=== PATIENT | female | born 1940 | race Caucasian/White ===

== ENCOUNTER 2016-06-22 10:11 | Outpatient (CLI) | payer MEDICARE, OTHER | END 2016-06-22 10:12 | disposition home or self-care (01) | DX: Z12.31 Encounter for screening mammogram for malignant neoplasm of breast (principal); Z98.82 Breast implant status ==

== ENCOUNTER 2019-01-02 10:17 | Outpatient (CLI) | payer MEDICARE, OTHER | END 2019-01-02 10:18 | disposition home or self-care (01) | LOC: DI 10:17 | PROVIDERS: ATTEND Internal Medicine Cardiovascular Disease | DX: R93.1 Abnormal findings on diagnostic imaging of heart and coronary circulation (principal); I08.0 Rheumatic disorders of both mitral and aortic valves | CPT/HCPCS: 93306 ==

== ENCOUNTER 2019-05-29 15:45 | Outpatient (CLI) | payer MEDICARE, OTHER ==
--- NOTE | 2019-05-30 09:02 | DEXA Report ---
Reason: POSTMENOPAUSAL Procedure Date: 05/29/2019 Accession Number: [id number] / [id number] Procedure: DEX - Dexa Spine and/or Hip CPT Code: Final Report FULL RESULT: EXAM: Dexa Spine and/or Hip DATE: 05/29/2019 4:34 PM CLINICAL HISTORY: POSTMENOPAUSAL TECHNIQUE: Dual energy x-ray absorptiometry (DXA) was performed on a [employer] System. Regions measured are the AP Spine, femoral neck, and if needed forearm. COMPARISON: None. In accordance with the International Society for Clinical Densitometry (ISCD) guidelines, data from previous exams may be reanalyzed using current recommendations and techniques. This is done to allow a more accurate basis for comparison with the current study. FINDINGS: The data for the lumbar spine is as follows: BMD (g/cm/cm) T-SCORE Z-SCORE REGION L1 1.266 1.1 2.8 L2 1.324 1.0 2.7 L3 1.385 1.5 3.2 L4 1.376 1.5 3.1 TOTAL 1.341 1.3 3.0 NOTE: All evaluable vertebrae are used for classification The data for the hip is as follows: BMD (g/cm/cm) T-SCORE Z-SCORE REGION Neck 0.779 -1.9 0.2 TOTAL 0.933 -0.6 1.3 NOTE: The femoral neck or total proximal femur, whichever is lowest, is used for classification. IMPRESSION: THE WHO CLASSIFICATION BASED ON THE INTERNATIONAL REFERENCE STANDARD IS OSTEOPENIA. THE FRACTURE RISK IS INCREASED. RECOMMENDATION: Patients with diagnosis of osteoporosis or osteopenia should have regular bone mineral density assessment. For those eligible for Medicare, routine testing is allowed once every 2 years. Testing frequency can be increased for patients who have rapidly progressing disease or for those who are receiving medical therapy to restore bone mass. COMMENT: World Health Organization (WHO) definitions for osteoporosis and osteopenia: NORMAL BMD: T-score at -1.0 or higher, fracture risk is low OSTEOPENIA BMD: T-score between -1.0 and -2.5, fracture risk is increased. OSTEOPOROSIS BMD: T-score at -2.5 or lower, fracture risk is high. National Osteoporosis Foundation recommends: 1. Obtain adequate dietary calcium (at least 1200 mg per day) and vitamin D (400-800 international units per day). 2. Participate, as appropriate, in regular weightbearing and muscle-strengthening exercise. 3. Avoid tobacco use and reduce alcohol and caffeine intake. 4. For more detailed information see the website at www.NOF.org.
== END 2019-05-29 15:46 | disposition home or self-care (01) ==
LOC: DI 15:45
PROVIDERS: ATTEND Registered Nurse
DX: M85.88 Other specified disorders of bone density and structure, other site (principal)
CPT/HCPCS: 77080

== ENCOUNTER 2019-05-29 15:46 | Outpatient (CLI) | payer MEDICARE, OTHER ==
--- NOTE | 2019-05-30 08:33 | Mammography Report ---
Reason: ROUTINE MAMMO Procedure Date: 05/29/2019 Accession Number: [id number] / [id number] Procedure: SIRIA - Screening Mammo Dig w/Implants CPT Code: Final Report FULL RESULT: EXAM: Screening Mammo Dig w/Implants DATE: 05/29/2019 4:31 PM CLINICAL HISTORY: Screening encounter. TECHNIQUE: (B) - Bilateral CC and MLO views were obtained. Views are obtained in standard fashion and implant displaced technique. COMPARISON: 06/22/2016 through 09/21/2009. PARENCHYMAL PATTERN: (F) - The breast(s) demonstrate(s) diffuse fatty replacement. FINDINGS: Bilateral intact-appearing retromammary implants are essentially unchanged There are no suspicious masses, calcifications, or areas of distortion. IMPRESSION: Benign findings. BI-RADS category 2. RECOMMENDATION: (ANNUAL) - Recommend routine annual screening mammography. BI-RADS CATEGORY: (2) - Benign Findings. STANDARD QUALIFYING STATEMENTS: 1. This examination was not reviewed with the aid of Computer-Aided Detection (CAD). 2. A negative or benign imaging report should not preclude biopsy if clinically suspicious findings are present. 3. Dense breasts may obscure an underlying neoplasm. 4. This examination was reviewed with the aid of 3D breast imaging (tomosynthesis).
== END 2019-05-29 15:47 | disposition home or self-care (01) ==
LOC: DI 15:46
PROVIDERS: ATTEND Registered Nurse
DX: Z12.31 Encounter for screening mammogram for malignant neoplasm of breast (principal); Z98.82 Breast implant status
CPT/HCPCS: 77067

== ENCOUNTER 2020-01-26 16:43 | Outpatient (CLI) | payer MEDICARE, OTHER | END 2020-01-27 16:44 | disposition short-term general hospital (02) | LOC: EMS 16:43 | PROVIDERS: ATTEND Surgery | DX: R07.89 Other chest pain (principal); R11.2 Nausea with vomiting, unspecified | CPT/HCPCS: A0425; A0427 ==

== ENCOUNTER 2020-02-03 09:49 | Outpatient (CLI) | payer MEDICARE, OTHER | END 2020-02-03 09:50 | disposition home or self-care (01) | LOC: LAB 09:49 | PROVIDERS: ATTEND Registered Nurse | DX: I10 Essential (primary) hypertension (principal) | CPT/HCPCS: 36415; 82088; 84244 ==

== ENCOUNTER 2020-02-19 11:58 | Outpatient (CLI) | payer MEDICARE, OTHER ==
[2020-02-19 15:28] LABS: BASOPHILS % (AUTO) 0.4 %; EOSINOPHILS # (AUTO) 0.1 10^3/uL (0.0-0.7); EOSINOPHILS % (AUTO) 0.7 %; HGB - HEMOGLOBIN 13.1 g/dL (12.0-16.0); LYMPHOCYTES # (AUTO) 1.8 10^3/uL (1.5-3.5); LYMPHOCYTES % (AUTO) 24.4 %; MEAN CORPUSCULAR HEMOGLOBIN 28.8 pg (27.0-31.0); MEAN CORPUSCULAR HGB CONC 32.3 g/dL (32.0-36.0); MEAN CORPUSCULAR VOLUME 89.2 fL (81.0-99.0); MEAN PLATELET VOLUME 10.4 fL (7.9-10.8); MONOCYTES # (AUTO) 0.3 10^3/uL (0.0-1.0); MONOCYTES % (AUTO) 4.7 %; NEUTROPHILS % (AUTO) 69.4 %; PLT - PLATELET COUNT 283 10^3/uL (130-450); RED BLOOD COUNT 4.55 10^6/uL (4.20-5.40); RED CELL DISTRIBUTION WIDTH 13.8 % (12.0-15.0); WHITE BLOOD COUNT 7.2 x10^3/uL (4.8-10.8)
[2020-02-19 15:44] LABS: CALCIUM 9.7 mg/dL (8.5-10.3); CREATININE 1.4 mg/dL (0.4-1.0)
== END 2020-02-19 11:59 | disposition home or self-care (01) ==
LOC: LAB.S 11:58
PROVIDERS: ATTEND Registered Nurse
DX: R11.0 Nausea (principal); R68.89 Other general symptoms and signs
CPT/HCPCS: 36415; 80048; 83735; 84443; 85025

== ENCOUNTER 2020-02-27 08:25 | Outpatient (CLI) | payer MEDICARE, OTHER ==
[2020-02-27 15:53] LABS: CALCIUM 9.3 mg/dL (8.5-10.3); CREATININE 1.3 mg/dL (0.4-1.0)
== END 2020-02-27 08:26 | disposition home or self-care (01) ==
LOC: LAB.S 08:25
PROVIDERS: ATTEND Registered Nurse
DX: N17.9 Acute kidney failure, unspecified (principal)
CPT/HCPCS: 36415; 80048

== ENCOUNTER 2020-02-27 18:02 | Outpatient (CLI) | payer MEDICARE, OTHER | END 2020-02-27 18:03 | disposition critical access hospital (66) | LOC: EMS 18:02 | PROVIDERS: ATTEND Surgery | DX: R11.0 Nausea (principal) | CPT/HCPCS: A0425; A0427 ==

== ENCOUNTER 2020-02-27 18:51 | Emergency (ER) | payer MEDICARE, OTHER ==
[2020-02-27] MEDS ORDERED: SODIUM CHLORIDE 0.9% 1,000 ML IV STA (19:04)
[2020-02-27] MEDS ORDERED: METOCLOPRAMIDE 10 MG/2 ML VIAL IVP STA (19:04)
--- NOTE | 2020-02-27 19:12 | ED Physician Documentation ---
History of Present Illness - Stated complaint Stated Complaint: NAUSEA X 1 MONTH - Chief complaint Chief Complaint: General - History obtained from History obtained from: Patient, EMS - Additonal information Additional information: This is a abril 79-year-old woman who presents by ambulance for a month worth of nausea. She says she has had on and off bouts with this, and whenever she is seen a troponin is checked and it is high. She is had to angiography examinations for this, the most recent was a month ago and was totally normal per her. She was diagnosed with MINOCA. For the last month and worse over the last weeks she has had nausea especially in the morning. She is lost only a couple pounds with this. There is no associated chest or abdominal pain. No headache. No fevers. She tried Zofran without relief. Review of Systems Ten Systems: 10 systems reviewed and negative Constitutional: denies: Fever, Chills, Fatigue Cardiac: denies: Chest pain / pressure, Palpitations Respiratory: denies: Dyspnea, Cough GI: reports: Nausea, Vomiting. denies: Abdominal Pain, Diarrhea PD PAST MEDICAL HISTORY - Past Medical History Cardiovascular: Hypertension Respiratory: None Endocrine/Autoimmune: None GI: None OFFICE MESSENGER: None : None HEENT: None Psych: None Musculoskeletal: None Derm: None - Past Surgical History Past Surgical History: Yes /OFFICE MESSENGER: Hysterectomy - Present Medications Home Medications: Ambulatory Orders Medication Instructions Recorded Confirmed Carvedilol 12.5 mg ORAL BID 06/06/15 03/08/16 Hydrochlorothiazide 12.5 mg ORAL DAILY 06/06/15 03/08/16 Losartan [Cozaar] 100 mg ORAL DAILY 06/06/15 03/08/16 cloNIDine [Catapres] 0.1 mg ORAL DAILY 06/06/15 03/08/16 Ondansetron Odt [Zofran] 4 mg TL Q6H PRN #20 tablet 02/27/20 - Allergies Allergies/Adverse Reactions: Allergies Allergy/AdvReac Type Severity Reaction Status Date / Time clindamycin Allergy Hives Verified 02/27/20 19:01 acetaminophen [From Vicodin] AdvReac Nausea Verified 02/27/20 19:01 fentanyl AdvReac Emesis Verified 02/27/20 19:01 hydrocodone bitartrate * AdvReac Nausea Verified 02/27/20 19:01 [From Vicodin] - Social History Does the pt smoke?: No Smoking Status: Never smoker Does the pt drink ETOH?: Yes Does the pt have substance abuse?: No - Immunizations Immunizations are current?: Yes PD ED PE NORMAL - Vitals Vital signs reviewed: Yes - General General: Alert and oriented X 3, No acute distress - HEENT HEENT: PERRL, EOMI - Neck Neck: Supple, no meningeal sign, No bony TTP - Cardiac Cardiac: RRR, No murmur - Respiratory Respiratory: No respiratory distress, Clear bilaterally - Abdomen Abdomen: Normal bowel sounds, Soft, Non tender - Back Back: No CVA TTP, No spinal TTP - Derm Derm: Normal color, Warm and dry - Extremities Extremities: No edema, No calf tenderness / cord - Neuro Neuro: Alert and oriented X 3, No motor deficit, No sensory deficit, Normal speech Eye Opening: Spontaneous Motor: Obeys Commands Verbal: Oriented GCS Score: 15 Results - Vitals Vitals: Vital Signs - 24 hr 02/27/20 02/27/20 02/27/20 18:56 19:00 21:09 Temperature 36.3 C L 36.5 C Heart Rate 68 68 71 Respiratory 16 16 17 Rate Blood Pressure 171/84 H 171/84 H 136/91 H O2 Saturation 99 99 98 Oxygen O2 Source Room air - Labs Labs: Laboratory Tests 02/27/20 02/27/20 19:39 19:39 WBC 8.3 RBC 4.69 Hgb 13.7 Hct 41.0 MCV 87.4 MCH 29.2 MCHC 33.4 RDW 13.3 Plt Count 259 MPV 9.7 Neut # (Auto) 6.0 Lymph # (Auto) 1.6 Mitchell # (Auto) 0.6 Eos # (Auto) 0.1 Baso # (Auto) 0.1 Absolute Nucleated RBC 0.00 Nucleated RBC % 0.0 Sodium 136 Potassium 3.7 Chloride 101 Carbon Dioxide 21 Anion Gap 14.0 H BUN 27 H Creatinine 1.3 H Estimated GFR (MDRD) 39 L Glucose 116 H Calcium 9.5 Total Bilirubin 0.8 AST 15 ALT 12 Alkaline Phosphatase 54 Total Protein 7.3 Albumin 4.4 Globulin 2.9 Albumin/Globulin Ratio 1.5 Lipase 43 PD MEDICAL DECISION MAKING - ED course ED course: 79-year-old woman with persistent nausea, she has had this worked up in the past without a definitive diagnosis except for elevated troponins with repeatedly negative angiography prompting the diagnosis of MINOCA. Discussed with her today whether or not we should order troponin we decided with shared decision making it was probably not in her best interest. Departure - Departure Disposition: Home, Self Care Clinical Impression: Nausea & vomiting Qualifiers: Vomiting type: unspecified Vomiting Intractability: intractable Qualified Code(s): R11.2 - Nausea with vomiting, unspecified Condition: Good Record reviewed to determine appropriate education?: Yes Instructions: ED Nausea Vomiting Follow-Up: Shmuel Li MD [Provider Admit Priv/Credential] - Prescriptions: Ondansetron Odt [Zofran] 4 mg TL Q6H PRN #20 tablet PRN Reason: Nausea / Vomiting Comments: Prescription sent electronically to [facility] in [place]. As discussed- reasonable to follow-up with a surgeon for consideration of upper endoscopy and or gastric emptying study. One is listed on this form that you can follow-up with. Return for new or worsening symptoms. Call the surgeon's office on Sunday.
[2020-02-27 19:54] LABS: BASOPHILS # (AUTO) 0.1 10^3/uL (0.0-0.1); BASOPHILS % (AUTO) 0.6 %; EOSINOPHILS # (AUTO) 0.1 10^3/uL (0.0-0.7); HGB - HEMOGLOBIN 13.7 g/dL (12.0-16.0); LYMPHOCYTES # (AUTO) 1.6 10^3/uL (1.5-3.5); LYMPHOCYTES % (AUTO) 19.6 %; MEAN CORPUSCULAR HEMOGLOBIN 29.2 pg (27.0-31.0); MEAN CORPUSCULAR HGB CONC 33.4 g/dL (32.0-36.0); MEAN CORPUSCULAR VOLUME 87.4 fL (81.0-99.0); MEAN PLATELET VOLUME 9.7 fL (7.9-10.8); MONOCYTES # (AUTO) 0.6 10^3/uL (0.0-1.0); MONOCYTES % (AUTO) 6.6 %; NEUTROPHILS % (AUTO) 71.7 %; PLT - PLATELET COUNT 259 10^3/uL (130-450); RED BLOOD COUNT 4.69 10^6/uL (4.20-5.40); RED CELL DISTRIBUTION WIDTH 13.3 % (12.0-15.0); WHITE BLOOD COUNT 8.3 x10^3/uL (4.8-10.8)
[2020-02-27 20:02] LABS: ALBUMIN 4.4 g/dL (3.2-5.5); ALBUMIN/GLOBULIN RATIO 1.5 (1.0-2.2); BILIRUBIN,TOTAL 0.8 mg/dL (0.2-1.0); CALCIUM 9.5 mg/dL (8.5-10.3); CREATININE 1.3 mg/dL (0.4-1.0); TOTAL PROTEIN 7.3 g/dL (6.7-8.2)
[2020-02-27] MEDS ORDERED: ONDANSETRON 4 MG/2 ML VIAL IVP STA (20:33)
[2020-02-27 21:11] VITALS: BP 136/91
== END 2020-02-27 22:26 | disposition home or self-care (01) ==
LOC: EDUNIT# → ED 18:51
DX: R11.2 Nausea with vomiting, unspecified (principal); I10 Essential (primary) hypertension; N17.9 Acute kidney failure, unspecified
CPT/HCPCS: 36415; 80048; 80053; 83690; 85025; 96374; 96375; 99284; J2765

== ENCOUNTER 2020-03-11 10:28 | Outpatient (CLI) | payer MEDICARE, OTHER ==
[2020-03-11 15:54] LABS: ALBUMIN 4.2 g/dL (3.2-5.5); CALCIUM 9.2 mg/dL (8.5-10.3); CREATININE 1.2 mg/dL (0.4-1.0); PHOSPHORUS 3.4 mg/dL (2.5-4.6)
== END 2020-03-11 10:29 | disposition home or self-care (01) ==
LOC: LAB.S 10:28
PROVIDERS: ATTEND Registered Nurse
DX: N18.30 Chronic kidney disease, stage 3 unspecified (principal)
CPT/HCPCS: 36415; 80069

== ENCOUNTER 2020-03-19 11:59 | Outpatient (CLI) | payer MEDICARE, OTHER | END 2020-03-19 12:00 | disposition critical access hospital (66) | LOC: EMS 11:59 | PROVIDERS: ATTEND Surgery | DX: R11.0 Nausea (principal); R20.0 Anesthesia of skin; R03.0 Elevated blood-pressure reading, without diagnosis of hypertension | CPT/HCPCS: A0425; A0427 ==

== ENCOUNTER 2020-03-19 12:46 | Emergency (ER) | payer MEDICARE, OTHER ==
--- NOTE | 2020-03-19 12:57 | ED Physician Documentation ---
PD HPI NVD - Stated complaint Stated Complaint: NAUSEA - History obtained from History obtained from: Patient - History of Present Illness Timing - onset: How many weeks ago (7) Timing - duration: Weeks (7) Timing - details: Waxing and waning Associated symptoms: Loss of appetite. No: Fever, Abdominal pain, Chest pain, Near syncope / syncope, Weight loss Contributing factors: No: Sick contact, Bad food, Travel Improved by: Meds (some better with Zofran initially, but not effective the past week or so.). No: Eating Worsened by: No: Eating, Moving Similar symptoms before: No diagnosis (no firm diagnosis for the nausea in the past 7 weeks.) Recently seen: Clinic (She has been seen by her primary care with treatment of Zofran for nausea and referred to Dr. Pa for possible EGD to further assess the persistent nausea. Seen 2 days ago in the office in preparation and discussion of that.), Emergency Dept (She states she was seen in the emergency room in [place] in January for a lightheaded and HTN. She was evaluated for heart with echo and stress test and heart cath and states these were normal. Her blood pressure was elevated; she was started on amlodipine. She states nausea started week later) Review of Systems Constitutional: denies: Fever, Chills Nose: denies: Rhinorrhea / runny nose, Congestion Throat: denies: Sore throat Cardiac: denies: Chest pain / pressure, Palpitations Respiratory: denies: Dyspnea, Cough GI: reports: Nausea. denies: Abdominal Pain, Vomiting, Constipation, Diarrhea Skin: denies: Rash, Lesions Neurologic: denies: Near syncope, Altered mental status, Headache PD PAST MEDICAL HISTORY - Past Medical History Cardiovascular: Hypertension Respiratory: None Endocrine/Autoimmune: None GI: None HOT TOP LINER: None : None HEENT: None Psych: None Musculoskeletal: None Derm: None - Past Surgical History Past Surgical History: Yes /HOT TOP LINER: Hysterectomy - Present Medications Home Medications: Ambulatory Orders Medication Instructions Recorded Confirmed Carvedilol 12.5 mg ORAL BID 06/06/15 03/08/16 Hydrochlorothiazide 12.5 mg ORAL DAILY 06/06/15 03/08/16 Losartan [Cozaar] 100 mg ORAL DAILY 06/06/15 03/08/16 cloNIDine [Catapres] 0.1 mg ORAL DAILY 06/06/15 03/08/16 Ondansetron Odt [Zofran] 4 mg TL Q6H PRN #20 tablet 02/27/20 Famotidine [Pepcid] 20 mg PO DAILY #20 tablet 03/19/20 Promethazine [Phenergan] 25 mg PO Q6H PRN #25 tab 03/19/20 - Allergies Allergies/Adverse Reactions: Allergies Allergy/AdvReac Type Severity Reaction Status Date / Time clindamycin Allergy Hives Verified 02/27/20 19:01 acetaminophen [From Vicodin] AdvReac Nausea Verified 02/27/20 19:01 fentanyl AdvReac Emesis Verified 02/27/20 19:01 hydrocodone bitartrate * AdvReac Nausea Verified 02/27/20 19:01 [From Vicodin] metoclopramide [From Reglan] AdvReac Hallucinati Verified 03/19/20 12:58 ons - Living Situation Living Arrangement: reports: At home - Social History Does the pt smoke?: No Smoking Status: Never smoker Does the pt drink ETOH?: Yes Does the pt have substance abuse?: No - Immunizations Immunizations are current?: Yes PD ED PE NORMAL - Vitals Vital signs reviewed: Yes - General General: Alert and oriented X 3, Well developed/nourished, Other (appears uncomfortable due to nausea. No change with head position. No nystagmus. ) - HEENT HEENT: Pharynx benign - Neck Neck: Supple, no meningeal sign, No adenopathy - Cardiac Cardiac: RRR, No murmur - Respiratory Respiratory: Clear bilaterally - Abdomen Abdomen: Normal bowel sounds, Soft, Non tender, Non distended - Back Back: No CVA TTP - Derm Derm: Normal color, Warm and dry - Extremities Extremities: Normal ROM s pain, No edema, No calf tenderness / cord - Neuro Neuro: Alert and oriented X 3, dry color tester 2-12 intact, No motor deficit, No sensory deficit, Normal speech Eye Opening: Spontaneous Motor: Obeys Commands Verbal: Oriented GCS Score: 15 Results - Vitals Vitals: Vital Signs - 24 hr 03/19/20 03/19/20 03/19/20 12:52 14:50 15:54 Temperature 36.6 C Heart Rate 85 82 94 Respiratory 19 22 20 Rate Blood Pressure 179/74 H 164/68 H 97/64 O2 Saturation 100 99 100 Oxygen O2 Source Room air - Labs Labs: Laboratory Tests 03/19/20 15:17 Sodium 142 Potassium 3.7 Chloride 110 Carbon Dioxide 21 Anion Gap 11.0 BUN 17 Creatinine 1.2 H Estimated GFR (MDRD) 43 L Glucose 107 H Calcium 9.1 Magnesium 1.7 Total Bilirubin 0.9 AST 12 ALT 11 Alkaline Phosphatase 50 Total Protein 6.5 L Albumin 3.8 Globulin 2.7 Albumin/Globulin Ratio 1.4 - Rads (name of study) head CT Radiology: Prelim report reviewed (no acute process), See rad report PD MEDICAL DECISION MAKING - ED course Complexity details: reviewed results, considered differential (She has been evaluated with heart testing in January which was normal. She is being evaluated for possible EGD to assess for gastritis as a cause of her nausea. This point we can check electrolytes again to ensure they are still good. Head CT can be done to ensure no central obvious mass-effect), d/w patient ED course: Her symptoms did start a week or so after starting amlodipine. Drug reference does list nausea is a relatively common side effect to this so we can discontinue this medicine and see how she does. She seems to be doing better with Phenergan over ondansetron so can prescribe that for the short-term. Anticipate improvement in her nausea over the next 3 to 5 days if she discontinues the amlodipine and its related to that. Departure - Departure Disposition: 01 Home, Self Care Clinical Impression: Nausea Medication adverse effect Qualifiers: Encounter type: initial encounter Qualified Code(s): T50.905A - Adverse effect of unspecified drugs, medicaments and biological substances, initial encounter Condition: Stable Record reviewed to determine appropriate education?: Yes Instructions: ED Nausea Vomiting Follow-Up: Joaquina Worthington ARNP [Primary Care Provider] - Yury Gavin MD [Provider Admit Priv/Credential] - Prescriptions: Famotidine [Pepcid] 20 mg PO DAILY #20 tablet Promethazine [Phenergan] 25 mg PO Q6H PRN #25 tab PRN Reason: Nausea / Vomiting Comments: Your chemistry panel and electrolytes are still normal. Your head CT does not show any signs of swelling tumors bleeding etc. I think your symptoms relate to a side effect of the amlodipine. The drug information source I referenced states leg swelling can be a side effect of course and also nausea as a relatively common side effect. I would have you to stop your amlodipine. Check your blood pressure daily and see how the trend is to see if you need a replacement blood pressure medicine. For now we will go without replacement to minimize potential other side effects. I would also stop your omeprazole and change to famotidine as some people can get nauseous from the omeprazole. I realize that was not a medicine when you started with the nausea. Use promethazine for nausea every 6 hours as needed instead of the ondansetron. See how well you do over the next several days and hopefully your nausea will decrease and resolve. Follow-up still with Dr. Aponte regarding continuing with the idea of endoscopy to evaluate the stomach.
[2020-03-19] MEDS ORDERED: PROMETHAZINE INJ 6.25 MG in SODIUM CHLORIDE 0.9% 50 ML IV STA ×2 (13:33→16:00)
[2020-03-19] MEDS ORDERED: SODIUM CHLORIDE 0.9% 1,000 ML IV STA (13:33)
[2020-03-19] MEDS ORDERED: FAMOTIDINE 20 MG/2 ML SYRINGE IVP STA (13:34)
--- NOTE | 2020-03-19 15:04 | CT Report ---
PROCEDURE: HEAD WO INDICATIONS: nausea for weeks TECHNIQUE: Noncontrast 4.5 mm thick angled axial sections acquired from the foramen magnum to the vertex. For r adiation dose reduction, the following was used: automated exposure control, adjustment of mA and/or kV according to patient size. COMPARISON: 10/31/2015 FINDINGS: Image quality: Excellent. CSF spaces: Basal cisterns are patent. No extra-axial fluid collections. The ventricles are symmet kerry in size and shape. Brain: No intracranial bleeds or masses. There is cerebral volume loss for age, with resultant vent ricular and sulcal prominence. There are periventricular and deep white matter chronic small vessel ischemic changes. There is intracranial internal carotid artery atherosclerosis. Skull and face: Calvarium and visualized facial bones appear intact, without suspicious lesions. Sinuses: Visualized sinuses and mastoids are clear. IMPRESSION: No acute intracranial disease process. Reviewed by: Seema Anderson MD, PhD on 03/19/2020 3:03 PM PST Approved by: Seema Anderson MD, PhD on 03/19/2020 3:03 PM PST Station ID: [id number]
[2020-03-19 15:37] LABS: ALBUMIN 3.8 g/dL (3.2-5.5); ALBUMIN/GLOBULIN RATIO 1.4 (1.0-2.2); BILIRUBIN,TOTAL 0.9 mg/dL (0.2-1.0); CALCIUM 9.1 mg/dL (8.5-10.3); CREATININE 1.2 mg/dL (0.4-1.0); MAGNESIUM 1.7 mg/dL (1.7-2.8); TOTAL PROTEIN 6.5 g/dL (6.7-8.2)
[2020-03-19] MEDS ORDERED: LACTATED RINGERS 1,000 ML IV STA (16:00)
[2020-03-19] MEDS ORDERED: ACETAMINOPHEN 325 MG TABLET PO STA (16:54)
[2020-03-19 17:50] VITALS: BP 165/90
== END 2020-03-19 17:52 | disposition home or self-care (01) ==
LOC: EDUNIT# → ED 12:46
DX: R11.0 Nausea (principal); T46.1X5A Adverse effect of calcium-channel blockers, initial encounter; I10 Essential (primary) hypertension
CPT/HCPCS: 36415; 70450; 80053; 83735; 96361; 96365; 96366; 96375; 99284; A9270; J7040; J7120

== ENCOUNTER 2020-03-25 10:26 | Outpatient (CLI) | payer MEDICARE, OTHER ==
[2020-03-25 10:59] LABS: CALCIUM 9.5 mg/dL (8.5-10.3); CREATININE 1.1 mg/dL (0.4-1.0)
== END 2020-03-25 10:27 | disposition home or self-care (01) ==
LOC: LAB 10:26
PROVIDERS: ATTEND Internal Medicine Cardiovascular Disease
DX: I10 Essential (primary) hypertension (principal)
CPT/HCPCS: 36415; 80048; 82088; 83835; 84244

== ENCOUNTER 2020-04-06 12:18 | Outpatient (CLI) | payer MEDICARE, OTHER | END 2020-04-06 12:19 | disposition home or self-care (01) | LOC: COV 12:18 | PROVIDERS: ATTEND Surgery | DX: Z01.818 Encounter for other preprocedural examination (principal); R11.0 Nausea; Z20.828 Contact with and (suspected) exposure to other viral communicable diseases ==

== ENCOUNTER 2020-04-09 09:38 | Outpatient (CLI) | payer MEDICARE, OTHER ==
[2020-04-09 14:33] LABS: CREATININE 1.2 mg/dL (0.4-1.0)
== END 2020-04-09 09:39 | disposition home or self-care (01) ==
LOC: LAB.S 09:38
PROVIDERS: ATTEND Internal Medicine Cardiovascular Disease
DX: I10 Essential (primary) hypertension (principal)
CPT/HCPCS: 36415; 80048

== ENCOUNTER 2020-04-12 09:22 | Day surgery (SDC) | payer MEDICARE, OTHER ==
[2020-04-12] MEDS ORDERED: LACTATED RINGERS 1,000 ML IV ONE ×2 (10:08→14:34)
--- NOTE | 2020-04-12 10:42 | ANESTHESIA ---
Pre-Anesthesia VS, & Labs - Diagnosis Chronic nausea - Procedure EGD with Biopsies Vital Signs: Temp Pulse Resp BP Pulse Ox 36.5 C 66 18 168/65 H 100 04/12/20 09:30 04/12/20 09:30 04/12/20 09:30 04/12/20 09:30 04/12/20 09:30 Height: 5 ft Weight (kg): 70.6 kg Body Mass Index: 30.4 BMI Classification: Obese - NPO >8 hours - Is Patient ?: Waiver signed - Lab Results Lab results reviewed: Yes Home Medications and Allergies Home Medications: Ambulatory Orders Acetaminophen/Diphenhydramine [Acetaminophen-Diphenhyd 500-25] 2 each PO QPM 04/02/20 Amlodipine Besylate [Norvasc] 10 mg PO DAILY 04/02/20 Aspirin [Aspirin EC] 81 mg PO DAILY 04/02/20 Chlorthalidone 25 mg PO DAILY 04/02/20 Cholecalciferol [Vitamin D3] 50 mcg PO DAILY 04/02/20 LORazepam [Ativan] 0.5 - 1 mg PO TID PRN 04/02/20 Latanoprost [Xalatan] 1 drops EACHEYE DAILY 04/02/20 Carvedilol 12.5 mg ORAL BID 06/06/15 Losartan [Cozaar] 100 mg ORAL DAILY 06/06/15 Acetaminophen/Diphenhydramine [Acetaminophen-Diphenhyd 500-25] 2 each PO QPM 04/02/20 Amlodipine Besylate [Norvasc] 10 mg PO DAILY 04/02/20 Aspirin [Aspirin EC] 81 mg PO DAILY 04/02/20 Chlorthalidone 25 mg PO DAILY 04/02/20 Cholecalciferol [Vitamin D3] 50 mcg PO DAILY 04/02/20 LORazepam [Ativan] 0.5 - 1 mg PO TID PRN 04/02/20 Latanoprost [Xalatan] 1 drops EACHEYE DAILY 04/02/20 Allergies/Adverse Reactions: Allergies Allergy/AdvReac Type Severity Reaction Status Date / Time clindamycin Allergy Hives Verified 02/27/20 19:01 acetaminophen [From Vicodin] AdvReac Nausea Verified 02/27/20 19:01 fentanyl AdvReac Emesis Verified 02/27/20 19:01 hydrocodone bitartrate * AdvReac Nausea Verified 02/27/20 19:01 [From Vicodin] metoclopramide [From Reglan] AdvReac Hallucinati Verified 03/19/20 12:58 ons Anes History & Medical History - Anesthetic History Anesthesia Complications: reports: No previous complications Family history of Anesthesia Complications: Denies Family history of Malignant Hyperthermia: Denies - Medical History Cardiovascular: reports: Hypertension Pulmonary: reports: None Gastrointestinal: reports: None Urinary: reports: None Musculoskeletal: reports: None Endocrine/Autoimmune: reports: None Blood Disorders: reports: None Skin: reports: None Smoking Status: Never smoker - Surgical History General: Colonoscopy, Other Gynecologic: Hysterectomy Exam General: Alert, Oriented x3, Cooperative, No acute distress Dental: WNL Mouth Openin Fingerbreadth Neck Mobility: Normal Mallampati classification: II Respiratory: Lungs clear, Normal breath sounds, No respiratory distress, No accessory muscle use Cardiovascular: Regular rate, Normal S1, Normal S2, No murmurs Plan Anesthesia Type: MAC Consent for Procedure(s) Verified and Reviewed: Yes Code Status: Attempt Resuscitation ASA classification: 2-Mild systemic disease Is this case an emergency?: No
[2020-04-12] MEDS ORDERED: MORPHINE 2 MG/ML CARPUJECT IVP PRN (10:46)
[2020-04-12] MEDS ORDERED: fentaNYL 100 MCG/2 ML VIAL IVP PRN (10:46)
[2020-04-12] MEDS ORDERED: ePHEDrine 50 MG/ML VIAL IVP PRN (10:46)
[2020-04-12] MEDS ORDERED: ATROPINE ABBOJECT 1 MG/10 ML SYRINGE IVP PRN (10:46)
[2020-04-12] MEDS ORDERED: HYDROmorphone 0.5 MG/0.5 ML SYRINGE IVP PRN (10:46)
[2020-04-12] MEDS ORDERED: METOCLOPRAMIDE 10 MG/2 ML VIAL IVP PRN (10:46)
[2020-04-12] MEDS ORDERED: NALOXONE 0.4 MG/ML VIAL IVP PRN (10:46)
[2020-04-12] MEDS ORDERED: ONDANSETRON 4 MG/2 ML VIAL IVP PRN (10:46)
[2020-04-12] MEDS ORDERED: LACTATED RINGERS 1,000 ML IV SCH (11:00)
--- NOTE | 2020-04-12 14:43 | ANESTHESIA POST OP EVALUATION ---
Anesthesia Post Eval - Post Anesthesia Eval Vitals: Last Vital Signs Temp 36.1 C L 04/12/20 14:30 Pulse 60 04/12/20 14:30 Resp 16 04/12/20 14:30 BP 117/52 L 04/12/20 14:30 Pulse Ox 100 04/12/20 14:30 CV Function Including HR & BP: positive: Stable Pain Control: positive: Satisfactory Nausea & Vomiting: positive: Negative Mental Status: positive: Baseline Respiratory Status: Airway Patent Hydration Status: Satisfactory Anesthesia Complications: positive: None
[2020-04-12 15:24] VITALS: BP 165/68
== END 2020-04-12 09:23 | disposition home or self-care (01) ==
LOC: SDS 09:22
PROVIDERS: ATTEND Surgery
PROC: 0DB68ZX Excision of Stomach, Via Natural or Artificial Opening Endoscopic, Diagnostic (ICD-10-PCS; 2020-04-12)
PROC: 0DB28ZX Excision of Middle Esophagus, Via Natural or Artificial Opening Endoscopic, Diagnostic (ICD-10-PCS; 2020-04-12)
PROC: 0DB48ZX Excision of Esophagogastric Junction, Via Natural or Artificial Opening Endoscopic, Diagnostic (ICD-10-PCS; 2020-04-12)
PROC: 0DB98ZX Excision of Duodenum, Via Natural or Artificial Opening Endoscopic, Diagnostic (ICD-10-PCS; principal; 2020-04-12 10:30)
DX: R11.0 Nausea (principal); K44.9 Diaphragmatic hernia without obstruction or gangrene; I25.2 Old myocardial infarction; I44.0 Atrioventricular block, first degree; I13.10 Hypertensive heart and chronic kidney disease without heart failure, with stage 1 through stage 4 chronic kidney disease, or unspecified chronic kidney disease; N18.30 Chronic kidney disease, stage 3 unspecified; E66.9 Obesity, unspecified; Z68.30 Body mass index [BMI] 30.0-30.9, adult
CPT/HCPCS: 43239; J7120

== ENCOUNTER 2020-04-19 12:12 | Emergency (ER) | payer MEDICARE, OTHER ==
--- NOTE | 2020-04-19 12:47 | XRAY Report ---
PROCEDURE: Chest 1 View X-Ray INDICATIONS: Chest pain TECHNIQUE: One view of the chest was acquired. COMPARISON: None FINDINGS: Surgical changes and devices: None. Lungs and pleura: No pleural effusions or pneumothorax. Lungs are clear. Mediastinum: Mediastinal contours appear normal. Heart size is normal. Bones and chest wall: No suspicious bony lesions. Overlying soft tissues appear unremarkable. IMPRESSION: No acute cardiopulmonary disease process. Reviewed by: Seema Anderson MD, PhD on 04/19/2020 12:45 PM [facility] Approved by: Seema Anderson MD, PhD on 04/19/2020 12:45 PM [facility] Station ID: [id number]
[2020-04-19 12:54] LABS: BASOPHILS % (AUTO) 0.3 %; EOSINOPHILS % (AUTO) 0.5 %; HGB - HEMOGLOBIN 14.4 g/dL (12.0-16.0); LYMPHOCYTES # (AUTO) 1.4 10^3/uL (1.5-3.5); LYMPHOCYTES % (AUTO) 21.1 %; MEAN CORPUSCULAR HGB CONC 34.7 g/dL (32.0-36.0); MEAN CORPUSCULAR VOLUME 83.5 fL (81.0-99.0); MEAN PLATELET VOLUME 9.9 fL (7.9-10.8); MONOCYTES # (AUTO) 0.4 10^3/uL (0.0-1.0); MONOCYTES % (AUTO) 5.5 %; NEUTROPHILS # (AUTO) 4.6 10^3/uL (1.5-6.6); NEUTROPHILS % (AUTO) 72.4 %; PLT - PLATELET COUNT 239 10^3/uL (130-450); RED BLOOD COUNT 4.97 10^6/uL (4.20-5.40); RED CELL DISTRIBUTION WIDTH 12.7 % (12.0-15.0); WHITE BLOOD COUNT 6.4 x10^3/uL (4.8-10.8)
[2020-04-19 13:03] LABS: ALBUMIN 4.2 g/dL (3.2-5.5); ALBUMIN/GLOBULIN RATIO 1.4 (1.0-2.2); BILIRUBIN,TOTAL 0.8 mg/dL (0.2-1.0); CALCIUM 9.7 mg/dL (8.5-10.3); CREATININE 1.3 mg/dL (0.4-1.0); TOTAL PROTEIN 7.3 g/dL (6.7-8.2)
[2020-04-19] MEDS ORDERED: cloNIDine 0.1 MG TABLET PO STA (13:45)
[2020-04-19] MEDS ORDERED: FAMOTIDINE 20 MG TABLET PO STA (13:45)
--- NOTE | 2020-04-19 13:48 | ED Physician Documentation ---
PD HPI NVD - Stated complaint Stated Complaint: NAUSEA, HIGH BP, WEAK - Chief complaint Chief Complaint: Abd Pain - History obtained from History obtained from: Patient - Additonal information Additional information: Is an 79-year-old woman who presents for an exacerbation of chronic nausea. Over the last couple months has had increasing problems with nausea. She has been on Prilosec twice daily. Also Zofran which she does not feel like is helping. She did get some relief with famotidine, but states that made her constipated so stopped it. She is also having problems with her blood pressure, sometimes as high as 190 systolic at home. She saw her plate maker recently and was started on Aldactone in addition to her other blood pressure meds. She had an upper endoscopy last week which was notable for a hiatal hernia and very mild reflux. Otherwise no diagnostic abnormalities on biopsies. Has no chest pain, no abdominal pain. Review of Systems Constitutional: denies: Fever, Chills Nose: denies: Rhinorrhea / runny nose, Congestion Cardiac: denies: Chest pain / pressure, Palpitations Respiratory: denies: Dyspnea, Cough PD PAST MEDICAL HISTORY - Past Medical History Cardiovascular: Hypertension Respiratory: None Endocrine/Autoimmune: None GI: None CHILD DEVELOPMENT DIRECTOR: None : None HEENT: None Psych: None Musculoskeletal: None Derm: None - Past Surgical History Past Surgical History: Yes /CHILD DEVELOPMENT DIRECTOR: Hysterectomy - Present Medications Home Medications: Ambulatory Orders Medication Instructions Recorded Confirmed Carvedilol 12.5 mg ORAL BID 06/06/15 04/19/20 Losartan [Cozaar] 100 mg ORAL DAILY 06/06/15 04/19/20 Ondansetron Odt [Zofran] 4 mg TL Q6H PRN #20 tablet 02/27/20 04/19/20 Famotidine [Pepcid] 20 mg PO DAILY #20 tablet 03/19/20 04/12/20 Acetaminophen/Diphenhydramine 2 each PO QPM 04/02/20 04/02/20 [Acetaminophen-Diphenhyd 500-25] Aspirin [Aspirin EC] 81 mg PO DAILY 04/02/20 04/02/20 Chlorthalidone 25 mg PO DAILY 04/02/20 04/19/20 Cholecalciferol [Vitamin D3] 50 mcg PO DAILY 04/02/20 04/19/20 LORazepam [Ativan] 0.5 - 1 mg PO TID PRN 04/02/20 04/19/20 Latanoprost [Xalatan] 1 drops EACHEYE DAILY 04/02/20 04/19/20 Docusate Sodium 100Mg Capsule 100 mg PO BID #120 capsule 04/19/20 [Colace 100Mg Capsule] Famotidine [Pepcid] 20 mg PO BID #120 tablet 04/19/20 Spironolactone [Aldactone] 25 mg PO DAILY 04/19/20 04/19/20 cloNIDine [Catapres] 0.1 mg PO TID PRN #90 tablet 04/19/20 - Allergies Allergies/Adverse Reactions: Allergies Allergy/AdvReac Type Severity Reaction Status Date / Time clindamycin Allergy Hives Verified 04/19/20 12:27 acetaminophen [From Vicodin] AdvReac Nausea Verified 04/19/20 12:27 fentanyl AdvReac Emesis Verified 04/19/20 12:27 hydrocodone bitartrate * AdvReac Nausea Verified 04/19/20 12:27 [From Vicodin] metoclopramide [From Reglan] AdvReac Hallucinati Verified 04/19/20 12:27 ons - Social History Does the pt smoke?: No Smoking Status: Never smoker Does the pt drink ETOH?: Yes Does the pt have substance abuse?: No - Immunizations Immunizations are current?: Yes PD ED PE NORMAL - Vitals Vital signs reviewed: Yes - General General: Alert and oriented X 3, No acute distress, Other (She is at times tearful with slightly depressed affect.) - Cardiac Cardiac: RRR, No murmur - Respiratory Respiratory: No respiratory distress, Clear bilaterally - Abdomen Abdomen: Non tender - Derm Derm: Normal color, Warm and dry, No rash - Neuro Neuro: Alert and oriented X 3, Normal speech Results - Vitals Vitals: Vital Signs - 24 hr 04/19/20 04/19/20 04/19/20 12:24 12:27 14:27 Temperature 35.9 C L 36.3 C L 36.3 C L Heart Rate 71 72 69 Respiratory 22 16 16 Rate Blood Pressure 144/82 H 179/57 H 171/97 H O2 Saturation 98 99 99 Oxygen O2 Source Room air - EKG (time done) 1223 Rate: Rate (enter#) (92) Rhythm: NSR (with PVC/PACs) Mullens: Normal Intervals: Prolonged ME QRS: Normal Ischemia: Normal ST segments - Labs Labs: Laboratory Tests 04/19/20 04/19/20 04/19/20 12:40 12:40 12:40 WBC 6.4 RBC 4.97 Hgb 14.4 Hct 41.5 MCV 83.5 MCH 29.0 MCHC 34.7 RDW 12.7 Plt Count 239 MPV 9.9 Neut # (Auto) 4.6 Lymph # (Auto) 1.4 L [place] # (Auto) 0.4 Eos # (Auto) 0.0 Baso # (Auto) 0.0 Absolute Nucleated RBC 0.00 Nucleated RBC % 0.0 Sodium 131 L Potassium 3.9 Chloride 97 L Carbon Dioxide 21 Anion Gap 13.0 BUN 20 Creatinine 1.3 H Estimated GFR (MDRD) 39 L Glucose 126 H Calcium 9.7 Total Bilirubin 0.8 AST 12 ALT 11 Alkaline Phosphatase 62 Troponin I High Sens 14.6 Total Protein 7.3 Albumin 4.2 Globulin 3.1 Albumin/Globulin Ratio 1.4 Lipase 34 PD MEDICAL DECISION MAKING - ED course ED course: She presents with an exacerbation of now subacute to chronic nausea. Endoscopy results from last week reviewed. I think there is a little bit of anxiety or depression components but also the hiatal hernia. Blood pressure may be cause or effect. She was administered some famotidine and 0.1 mg of clonidine here with significant improvement. Departure - Departure Disposition: 01 Home, Self Care Clinical Impression: Hiatal hernia Nausea & vomiting Qualifiers: Vomiting type: unspecified Vomiting Intractability: unspecified Qualified Code(s): R11.2 - Nausea with vomiting, unspecified Condition: Good Record reviewed to determine appropriate education?: Yes Instructions: ED Nausea Vomiting Prescriptions: cloNIDine [Catapres] 0.1 mg PO TID PRN #90 tablet PRN Reason: Nausea / Vomiting Docusate Sodium 100Mg Capsule [Colace 100Mg Capsule] 100 mg PO BID #120 capsule Famotidine [Pepcid] 20 mg PO BID #120 tablet Comments: Follow-up with your surgeon tomorrow and also Dr. Kline soon. Return as needed.
[2020-04-19 15:31] VITALS: BP 149/61
== END 2020-04-19 15:53 | disposition home or self-care (01) ==
LOC: ED 12:12
DX: R11.2 Nausea with vomiting, unspecified (principal); K44.9 Diaphragmatic hernia without obstruction or gangrene; I10 Essential (primary) hypertension; I49.3 Ventricular premature depolarization; I49.1 Atrial premature depolarization; Z79.82 Long term (current) use of aspirin
CPT/HCPCS: 36415; 71045; 80053; 83690; 84484; 85025; 93005; 99284; A9270

== ENCOUNTER 2020-04-30 11:27 | Outpatient (CLI) | payer MEDICARE, OTHER ==
[2020-04-30 12:01] LABS: CALCIUM 9.5 mg/dL (8.5-10.3); CREATININE 1.4 mg/dL (0.4-1.0)
== END 2020-04-30 11:28 | disposition home or self-care (01) ==
LOC: LAB 11:27
PROVIDERS: ATTEND Internal Medicine Cardiovascular Disease
DX: I10 Essential (primary) hypertension (principal)
CPT/HCPCS: 36415; 80048

== ENCOUNTER 2020-04-30 11:30 | Outpatient (CLI) | payer MEDICARE, OTHER ==
--- NOTE | 2020-04-30 15:18 | Ultrasound Report ---
PROCEDURE: Carotid Doppler Complete INDICATIONS: CAROTID ATHEROSCLEROSIS TECHNIQUE: Color and pulse Doppler interrogation was performed of both carotid systems, with image documentation and velocity measurements. COMPARISON: Head CT 03/19/2020 FINDINGS: Right side: Common carotid artery peak systolic velocity: 47 cm/sec. Internal carotid artery peak systolic velocity: 63 cm/sec. Internal carotid artery end diastolic velocity: 10 cm/sec. External carotid artery peak systolic velocity: 97 cm/sec. ICA/CCA peak systolic ratio: 1.3 . Daniel scale imaging description: No calcific or soft plaque seen Percent internal carotid artery stenosis: None found. . Vertebral artery: Flow direction is antegrade. Left side: Common carotid artery peak systolic velocity: 49 cm/sec. Internal carotid artery peak systolic velocity: 66 cm/sec. Internal carotid artery end diastolic velocity: 15 cm/sec. External carotid artery peak systolic velocity: 57 cm/sec. ICA/CCA peak systolic ratio: 1.3 . Daniel scale imaging description: No calcific or soft plaque found Percent internal carotid artery stenosis: None identified. . Vertebral artery: Flow direction is antegrade. IMPRESSION: No carotid stenosis bilaterally. Vertebral arterial flow is antegrade in direction. The estimate of stenosis included in the report of the imaging study was calculated using the NASCET method Reviewed by: Holden Givens MD on 04/30/2020 3:16 PM PST Approved by: Holden Givens MD on 04/30/2020 3:16 PM PST Station ID: [id number]
== END 2020-04-30 11:31 | disposition home or self-care (01) ==
LOC: DI 11:30
PROVIDERS: ATTEND Registered Nurse
DX: I65.29 Occlusion and stenosis of unspecified carotid artery (principal); I10 Essential (primary) hypertension
CPT/HCPCS: 36415; 80048; 93880

== ENCOUNTER 2020-05-27 10:42 | Outpatient (CLI) | payer MEDICARE, OTHER ==
[2020-05-27 11:04] LABS: CALCIUM 9.5 mg/dL (8.5-10.3); CREATININE 1.4 mg/dL (0.4-1.0)
== END 2020-05-27 10:43 | disposition home or self-care (01) ==
LOC: LAB 10:42
PROVIDERS: ATTEND Internal Medicine Cardiovascular Disease
DX: I10 Essential (primary) hypertension (principal)
CPT/HCPCS: 36415; 80048

== ENCOUNTER 2020-08-24 10:54 | Outpatient (CLI) | payer MEDICARE, OTHER ==
[2020-08-24 15:38] LABS: CALCIUM 9.4 mg/dL (8.5-10.3); CREATININE 1.1 mg/dL (0.4-1.0); POTASSIUM 4.2 mmol/L (3.5-5.0)
== END 2020-08-24 10:55 | disposition home or self-care (01) ==
LOC: LAB.S 10:54
PROVIDERS: ATTEND Registered Nurse
DX: E55.9 Vitamin D deficiency, unspecified (principal); N18.30 Chronic kidney disease, stage 3 unspecified
CPT/HCPCS: 36415; 80048; 82306

== ENCOUNTER 2021-01-24 22:08 | Outpatient (CLI) | payer MEDICARE, OTHER | END 2021-01-24 22:09 | disposition EMS.NT | LOC: EMS 22:08 | DX: I10 Essential (primary) hypertension (principal) ==

== ENCOUNTER 2021-07-13 11:38 | Outpatient (CLI) | payer MEDICARE, OTHER | END 2021-07-13 11:39 | disposition home or self-care (01) | LOC: DI 11:38 | PROVIDERS: ATTEND Internal Medicine Cardiovascular Disease | DX: I35.1 Nonrheumatic aortic (valve) insufficiency (principal); I77.810 Thoracic aortic ectasia; I11.9 Hypertensive heart disease without heart failure | CPT/HCPCS: 93306 ==

== ENCOUNTER 2021-07-21 09:38 | Outpatient (CLI) | payer MEDICARE, OTHER ==
[2021-07-21 14:35] LABS: BASOPHILS # (AUTO) 0.1 10^3/uL (0.0-0.1); BASOPHILS % (AUTO) 0.8 %; EOSINOPHILS # (AUTO) 0.1 10^3/uL (0.0-0.7); EOSINOPHILS % (AUTO) 1.1 %; HCT - HEMATOCRIT 42.8 % (37.0-47.0); HGB - HEMOGLOBIN 14.2 g/dL (12.0-16.0); LYMPHOCYTES % (AUTO) 30.5 %; MEAN CORPUSCULAR HEMOGLOBIN 28.4 pg (27.0-31.0); MEAN CORPUSCULAR HGB CONC 33.2 g/dL (32.0-36.0); MEAN CORPUSCULAR VOLUME 85.6 fL (81.0-99.0); MONOCYTES # (AUTO) 0.5 10^3/uL (0.0-1.0); MONOCYTES % (AUTO) 7.1 %; NEUTROPHILS % (AUTO) 60.2 %; PLT - PLATELET COUNT 276 10^3/uL (130-450); RED CELL DISTRIBUTION WIDTH 13.7 % (12.0-15.0); WHITE BLOOD COUNT 6.6 x10^3/uL (4.8-10.8)
[2021-07-21 15:11] LABS: ALBUMIN 4.1 g/dL (3.2-5.5); ALBUMIN/GLOBULIN RATIO 1.4 (1.0-2.2); BILIRUBIN,TOTAL 0.8 mg/dL (0.2-1.0); CALCIUM 9.5 mg/dL (8.5-10.3); CREATININE 1.3 mg/dL (0.4-1.0); POTASSIUM 4.4 mmol/L (3.5-5.0)
== END 2021-07-21 09:39 | disposition home or self-care (01) ==
LOC: LAB.S 09:38
PROVIDERS: ATTEND Registered Nurse
DX: I10 Essential (primary) hypertension (principal); R11.0 Nausea
CPT/HCPCS: 36415; 80053; 84443; 85025

== ENCOUNTER 2021-07-28 15:19 | Outpatient (CLI) | payer MEDICARE, OTHER | END 2021-07-28 15:20 | disposition critical access hospital (66) | LOC: EMS 15:19 | DX: I10 Essential (primary) hypertension (principal); R11.0 Nausea; H53.8 Other visual disturbances | CPT/HCPCS: A0425; A0429 ==

== ENCOUNTER 2021-07-28 16:06 | Emergency (ER) | payer MEDICARE, OTHER ==
--- NOTE | 2021-07-28 16:36 | ED Physician Documentation ---
History of Present Illness - Stated complaint Stated Complaint: HIGH BP - Chief complaint Chief Complaint: Cardiac - History obtained from History obtained from: Patient, EMS - History of Present Illness Timing: Today Pain level max: 0 Pain level now: 0 - Additonal information Additional information: Patient is a 80-year-old female who presents to the emergency department concerned about her blood pressure being higher than usual today. She states her normal blood pressures anywhere from 1 60-1 80. She states that her blood pressure was around 200 today at home. She states that she took clonidine without relief. Continue to check her blood pressure and it continued higher. She states that this scared her and so she called 911. No chest pain. No shortness of breath. No vision changes. No headache. No focal neurological deficits. Otherwise asymptomatic. Review of Systems Ten Systems: 10 systems reviewed and negative Constitutional: denies: Fever, Chills Nose: denies: Rhinorrhea / runny nose, Congestion Throat: denies: Sore throat Cardiac: denies: Chest pain / pressure, Palpitations, Calf pain Respiratory: denies: Cough GI: denies: Abdominal Pain, Nausea, Vomiting, Diarrhea Skin: denies: Rash Musculoskeletal: denies: Neck pain, Back pain Neurologic: denies: Focal weakness, Numbness, Confused, Altered mental status, Headache PD PAST MEDICAL HISTORY - Past Medical History Cardiovascular: Hypertension Respiratory: None Endocrine/Autoimmune: None GI: None CERAMICS MACHINE OPERATOR: None : None HEENT: None Psych: None Musculoskeletal: None Derm: None - Past Surgical History Past Surgical History: Yes /CERAMICS MACHINE OPERATOR: Hysterectomy - Present Medications Home Medications: Ambulatory Orders Medication Instructions Recorded Confirmed Carvedilol 12.5 mg ORAL BID 06/06/15 04/19/20 Losartan [Cozaar] 100 mg ORAL DAILY 06/06/15 04/19/20 Ondansetron Odt [Zofran] 4 mg TL Q6H PRN #20 tablet 02/27/20 04/19/20 Famotidine [Pepcid] 20 mg PO DAILY #20 tablet 03/19/20 04/12/20 Acetaminophen/Diphenhydramine 2 each PO QPM 04/02/20 04/02/20 [Acetaminophen-Diphenhyd 500-25] Aspirin [Aspirin EC] 81 mg PO DAILY 04/02/20 04/02/20 Chlorthalidone 25 mg PO DAILY 04/02/20 04/19/20 Cholecalciferol [Vitamin D3] 50 mcg PO DAILY 04/02/20 04/19/20 LORazepam [Ativan] 0.5 - 1 mg PO TID PRN 04/02/20 04/19/20 Latanoprost [Xalatan] 1 drops EACHEYE DAILY 04/02/20 04/19/20 Docusate Sodium 100Mg Capsule 100 mg PO BID #120 capsule 04/19/20 [Colace 100Mg Capsule] Famotidine [Pepcid] 20 mg PO BID #120 tablet 04/19/20 Spironolactone [Aldactone] 25 mg PO DAILY 04/19/20 04/19/20 cloNIDine [Catapres] 0.1 mg PO TID PRN #90 tablet 04/19/20 - Allergies Allergies/Adverse Reactions: Allergies Allergy/AdvReac Type Severity Reaction Status Date / Time clindamycin Allergy Hives Verified 07/28/21 16:16 acetaminophen [From Vicodin] AdvReac Nausea Verified 07/28/21 16:16 fentanyl AdvReac Emesis Verified 07/28/21 16:16 hydrocodone bitartrate * AdvReac Nausea Verified 07/28/21 16:16 [From Vicodin] metoclopramide [From Reglan] AdvReac Hallucinati Verified 07/28/21 16:16 ons - Social History Does the pt smoke?: No Smoking Status: Never smoker Does the pt drink ETOH?: Yes Does the pt have substance abuse?: No - Immunizations Immunizations are current?: Yes PD ED PE NORMAL - Vitals Vital signs reviewed: Yes - General General: Alert and oriented X 3, No acute distress, Well developed/nourished - HEENT HEENT: Atraumatic, PERRL, Moist mucous membranes - Neck Neck: Supple, no meningeal sign, No bruit - Cardiac Cardiac: RRR, No murmur, Strong equal pulses - Respiratory Respiratory: No respiratory distress, Clear bilaterally - Abdomen Abdomen: Soft, Non tender, Non distended - Derm Derm: Warm and dry - Extremities Extremities: No edema - Neuro Neuro: Alert and oriented X 3, nursing home assistant 2-12 intact, No motor deficit, No sensory deficit, Normal speech Eye Opening: Spontaneous Motor: Obeys Commands Verbal: Oriented GCS Score: 15 - Psych Psych: Normal mood, Normal affect Results - Vitals Vitals: Vital Signs - 24 hr 07/28/21 07/28/21 07/28/21 16:11 16:15 16:45 Temperature 37 C Heart Rate 60 88 Respiratory 16 18 18 Rate Blood Pressure 193/55 H 193/80 H 176/88 H O2 Saturation 98 99 99 Oxygen O2 Source Room air PD MEDICAL DECISION MAKING - ED course Complexity details: considered differential, d/w patient ED course: In accordance with the [facility] clinical policy from June 2012, this patient has asymptomatic elevated blood pressure without evidence of acute target organ injury. There are also no signs of acute stroke, cardiac ischemia, pulmonary edema, encephalopathy or acute congestive heart failure. Therefore the patient will be referred to their primary care provider for follow-up of their asymptomatic hypertension. Patient counseled regarding signs and symptoms for which I believe and urgent re-evaluation would be necessary. Patient with good understanding of and agreement to plan and is comfortable going home at this time This document was made in part using voice recognition software. While efforts are made to proofread this document, sound alike and grammatical errors may occur. Departure - Departure Disposition: 01 Home, Self Care Clinical Impression: Hypertension Qualifiers: Hypertension type: unspecified Qualified Code(s): I10 - Essential (primary) hypertension Condition: Good Instructions: ED HTN Established Follow-Up: Carmela Cabrera ARNP [Credentialed Staff Provider] - Comments: Continue to check your blood pressure once a day, keep a log for your doctor to help adjust your medications. Please return if you develop headaches, shortness of breath, chest pain or other new or worrisome symptoms. Discharge Date/Time: 07/28/21 16:45
[2021-07-28 16:49] VITALS: BP 176/88
== END 2021-07-28 16:45 | disposition home or self-care (01) ==
LOC: EDUNIT# → ED 16:06
DX: I10 Essential (primary) hypertension (principal)
CPT/HCPCS: 99283

== ENCOUNTER 2021-08-30 13:53 | Outpatient (CLI) | payer MEDICARE, OTHER ==
[2021-08-30 20:22] LABS: CALCIUM 8.5 mg/dL (8.5-10.3); CREATININE 1.3 mg/dL (0.4-1.0); POTASSIUM 4.1 mmol/L (3.5-5.0)
== END 2021-08-30 13:54 | disposition home or self-care (01) ==
LOC: LAB.S 13:53
PROVIDERS: ATTEND Registered Nurse
DX: E87.1 Hypo-osmolality and hyponatremia (principal)
CPT/HCPCS: 36415; 80048

== ENCOUNTER 2021-09-16 11:55 | Outpatient (CLI) | payer MEDICARE, OTHER ==
[2021-09-16 14:58] LABS: CREATININE,URINE 145.9 mg/dL; PROTEIN/CREATININE RATIO,URINE 0.1 (<=0.2)
[2021-09-16 16:38] LABS: ALBUMIN 3.4 g/dL (3.2-5.5); CREATININE 1.2 mg/dL (0.4-1.0); PHOSPHORUS 4.1 mg/dL (2.5-4.6)
[2021-09-16 16:39] LABS: CALCIUM 8.9 mg/dL (8.5-10.3); POTASSIUM 4.6 mmol/L (3.5-5.0)
== END 2021-09-16 11:56 | disposition home or self-care (01) ==
LOC: LAB.S 11:55
PROVIDERS: ATTEND Internal Medicine Nephrology
DX: N18.32 Chronic kidney disease, stage 3b (principal)
CPT/HCPCS: 36415; 80069; 82306; 82570; 83970; 84156

== ENCOUNTER 2021-09-24 16:32 | Outpatient (CLI) | payer MEDICARE, OTHER | END 2021-09-24 16:33 | disposition short-term general hospital (02) | LOC: EMS 16:32 | DX: R53.1 Weakness (principal); R11.0 Nausea | CPT/HCPCS: A0425; A0429 ==

== ENCOUNTER 2021-09-29 08:36 | Outpatient (CLI) | payer MEDICARE, OTHER ==
--- NOTE | 2021-09-29 15:13 | Nuclear Medicine Report ---
PROCEDURE: Gastric Empty Small Bowel INDICATIONS: NAUSEA, DECREASED APPETITE RADIOPHARMACEUTICAL: 1.1 mCi Tc-99m sulfur colloid in an egg sandwich. TECHNIQUE: A Tc-99m labeled sulfur colloid labeled egg sandwich or oatmeal was served to the patient. Anterior and posterior planar images of the abdomen were obtained at 0 minutes and 30 minutes, then at hourly intervals up to 4 hours. The patient was upright and ambulating during the interval. COMPARISON: None available. FINDINGS: The stomach has normal size, morphology, and position. There is normal emptying of solid gastric con tents from the stomach by visual inspection. No gastroesophageal reflux is visualized. The percentage of tracer retained at specific time points are as follows: Time pointPercent gastric retentionNormal range 30 cxuffdn18%70% or more 1 hour67%30% to 90% 2 hours41%60% or less 3 hours21%30% or less 4 hours10%10% or less IMPRESSION: Normal examination without scintigraphic evidence of delayed gastric emptying. Reviewed by: Seema Anderson MD, PhD on 09/29/2021 3:12 PM PDT Approved by: Seema Anderson MD, PhD on 09/29/2021 3:12 PM PDT Station ID: [id number]
== END 2021-09-29 08:37 | disposition home or self-care (01) ==
LOC: DI 08:36
PROVIDERS: ATTEND Nurse Practitioner
DX: R11.0 Nausea (principal); R63.0 Anorexia
CPT/HCPCS: 78265

== ENCOUNTER → 2021-11-07 | Outpatient (CLI) | payer MEDICARE, OTHER | END | disposition short-term general hospital (02) | LOC: EMS 10:13 | DX: R53.83 Other fatigue (principal); H53.8 Other visual disturbances; R46.4 Slowness and poor responsiveness; R53.1 Weakness | CPT/HCPCS: A0425; A0427 ==

== ENCOUNTER 2021-12-14 13:21 | Outpatient (CLI) | payer MEDICARE, OTHER ==
[2021-12-14 19:45] LABS: ALBUMIN 4.1 g/dL (3.2-5.5); CALCIUM 9.4 mg/dL (8.5-10.3); CREATININE 1.4 mg/dL (0.4-1.0)
[2021-12-14 19:48] LABS: CREATININE,URINE 186.5 mg/dL; SODIUM, URINE < 12.0 mmol/L
[2021-12-19 10:08] LABS: ALDOSTERONE 7.5 ng/dL (0.0-30.0)
== END 2021-12-14 13:22 | disposition home or self-care (01) ==
LOC: LAB.S 13:21
PROVIDERS: ATTEND Internal Medicine
DX: E87.1 Hypo-osmolality and hyponatremia (principal)
CPT/HCPCS: 36415; 80069; 82088; 82533; 82570; 83930; 83935; 84300

== ENCOUNTER 2022-02-03 14:31 | Outpatient (CLI) | payer MEDICARE, OTHER ==
[2022-02-03 20:03] LABS: CREATININE,URINE 130.5 mg/dL
[2022-02-03 20:05] LABS: CALCIUM 9.2 mg/dL (8.5-10.3); CREATININE 1.4 mg/dL (0.4-1.0); PHOSPHORUS 3.9 mg/dL (2.5-4.6); POTASSIUM 4.3 mmol/L (3.5-5.0)
== END 2022-02-03 14:32 | disposition home or self-care (01) ==
LOC: LAB.S 14:31
PROVIDERS: ATTEND Internal Medicine Nephrology
DX: N18.32 Chronic kidney disease, stage 3b (principal)
CPT/HCPCS: 36415; 80069; 82570; 84156

== ENCOUNTER 2022-02-15 14:23 | Emergency (ER) | payer MEDICARE, OTHER ==
[2022-02-15 14:54] LABS: BASOPHILS % (AUTO) 0.5 %; EOSINOPHILS % (AUTO) 0.4 %; HCT - HEMATOCRIT 37.7 % (37.0-47.0); HGB - HEMOGLOBIN 12.2 g/dL (12.0-16.0); LYMPHOCYTES # (AUTO) 0.4 10^3/uL (1.5-3.5); LYMPHOCYTES % (AUTO) 4.3 %; MEAN CORPUSCULAR HEMOGLOBIN 28.4 pg (27.0-31.0); MEAN CORPUSCULAR HGB CONC 32.4 g/dL (32.0-36.0); MEAN CORPUSCULAR VOLUME 87.7 fL (81.0-99.0); MEAN PLATELET VOLUME 9.2 fL (7.9-10.8); MONOCYTES # (AUTO) 0.1 10^3/uL (0.0-1.0); MONOCYTES % (AUTO) 1.6 %; NEUTROPHILS % (AUTO) 92.8 %; PLT - PLATELET COUNT 278 10^3/uL (130-450); RED CELL DISTRIBUTION WIDTH 15.3 % (12.0-15.0); WHITE BLOOD COUNT 8.6 x10^3/uL (4.8-10.8)
--- NOTE | 2022-02-15 15:02 | XRAY Report ---
PROCEDURE: Chest 1 View X-Ray INDICATIONS: Chest pain TECHNIQUE: One view of the chest was acquired. COMPARISON: Chest x-ray 04/19/2020 FINDINGS: Surgical changes and devices: None. Lungs and pleura: No pleural effusions or pneumothorax. Lungs are clear. Mediastinum: Mediastinal contours appear normal. Heart size is enlarged. Bones and chest wall: No suspicious bony lesions. Overlying soft tissues appear unremarkable. IMPRESSION: No acute pulmonary process. Reviewed by: Stacey Tucker MD on 02/15/2022 3:01 PM PDT Approved by: Stacey Tucker MD on 02/15/2022 3:01 PM PDT Station ID: [id number]
[2022-02-15 15:07] LABS: ALBUMIN 4.4 g/dL (3.2-5.5); ALBUMIN/GLOBULIN RATIO 1.6 (1.0-2.2); BILIRUBIN,TOTAL 2.4 mg/dL (0.2-1.0); CALCIUM 9.5 mg/dL (8.5-10.3); CREATININE 1.4 mg/dL (0.4-1.0); POTASSIUM 3.5 mmol/L (3.5-5.0); TOTAL PROTEIN 7.2 g/dL (6.7-8.2)
[2022-02-15] MEDS ORDERED: PROCHLORPERAZINE 10 MG/2 ML VIAL IVP STA (15:21)
--- NOTE | 2022-02-15 15:33 | ED Physician Documentation ---
History of Present Illness - Stated complaint Stated Complaint: CHEST PX - Chief complaint Chief Complaint: Cardiac - Additonal information Additional information: Patient 81-year-old female presenting to the emergency department with chest and abdominal pain. Endorses for acute epigastric and substernal chest pain that began at approximately 1130. Associated with nausea and vomiting. Denies episodes of similar pain. Past medical significant for hypertension, stage III renal disease. Review of Systems Ten Systems: 10 systems reviewed and negative Constitutional: denies: Fever Eyes: denies: Loss of vision Ears: denies: Loss of hearing Nose: denies: Rhinorrhea / runny nose Throat: denies: Dental pain / toothache Cardiac: reports: Chest pain / pressure GI: reports: Abdominal Pain, Nausea, Vomiting : denies: Dysuria PD PAST MEDICAL HISTORY - Past Medical History Cardiovascular: Hypertension Respiratory: None Endocrine/Autoimmune: None GI: None RESERVATIONS SPECIALIST: None : None HEENT: None Psych: None Musculoskeletal: None Derm: None - Past Surgical History Past Surgical History: Yes /RESERVATIONS SPECIALIST: Hysterectomy - Present Medications Home Medications: Ambulatory Orders Medication Instructions Recorded Confirmed Carvedilol 12.5 mg ORAL BID 06/06/15 04/19/20 Losartan [Cozaar] 100 mg ORAL DAILY 06/06/15 04/19/20 Ondansetron Odt [Zofran] 4 mg TL Q6H PRN #20 tablet 02/27/20 04/19/20 Famotidine [Pepcid] 20 mg PO DAILY #20 tablet 03/19/20 04/12/20 Acetaminophen/Diphenhydramine 2 each PO QPM 04/02/20 04/02/20 [Acetaminophen-Diphenhyd 500-25] Aspirin [Aspirin EC] 81 mg PO DAILY 04/02/20 04/02/20 Chlorthalidone 25 mg PO DAILY 04/02/20 04/19/20 Cholecalciferol [Vitamin D3] 50 mcg PO DAILY 04/02/20 04/19/20 LORazepam [Ativan] 0.5 - 1 mg PO TID PRN 04/02/20 04/19/20 Latanoprost [Xalatan] 1 drops EACHEYE DAILY 04/02/20 04/19/20 Docusate Sodium 100Mg Capsule 100 mg PO BID #120 capsule 04/19/20 [Colace 100Mg Capsule] Famotidine [Pepcid] 20 mg PO BID #120 tablet 04/19/20 Spironolactone [Aldactone] 25 mg PO DAILY 04/19/20 04/19/20 cloNIDine [Catapres] 0.1 mg PO TID PRN #90 tablet 04/19/20 - Allergies Allergies/Adverse Reactions: Allergies Allergy/AdvReac Type Severity Reaction Status Date / Time clindamycin Allergy Hives Verified 02/15/22 14:35 acetaminophen [From Vicodin] AdvReac Nausea Verified 02/15/22 14:35 fentanyl AdvReac Emesis Verified 02/15/22 14:35 hydrocodone bitartrate * AdvReac Nausea Verified 02/15/22 14:35 [From Vicodin] metoclopramide [From Reglan] AdvReac Hallucinati Verified 02/15/22 14:35 ons - Social History Does the pt smoke?: No Smoking Status: Never smoker Does the pt drink ETOH?: Yes Does the pt have substance abuse?: No - Immunizations Immunizations are current?: Yes PD ED PE NORMAL - Vitals Vital signs reviewed: Yes - General General: Alert and oriented X 3, No acute distress - HEENT HEENT: Atraumatic, PERRL - Cardiac Cardiac: RRR, No gallop - Respiratory Respiratory: No respiratory distress, Clear bilaterally - Abdomen Abdomen: Normal bowel sounds, Soft, Non tender - Female Female : Deferred - Rectal Rectal: Deferred - Derm Derm: Normal color - Extremities Extremities: No deformity - Neuro Neuro: Alert and oriented X 3, guidance consultant 2-12 intact, No motor deficit Results - Vitals Vitals: Vital Signs - 24 hr 02/15/22 02/15/22 14:30 17:35 Temperature 36 C L Heart Rate 80 91 Respiratory 20 19 Rate Blood Pressure 143/60 H O2 Saturation 100 98 Oxygen O2 Source Room air - EKG (time done) 1432 Rate: Rate (enter#) (79) Rhythm: NSR Intervals: Prolonged PA QRS: Normal Ischemia: Normal ST segments - Labs Labs: Laboratory Tests 02/15/22 02/15/22 02/15/22 14:47 14:47 14:47 WBC 8.6 RBC 4.30 Hgb 12.2 Hct 37.7 MCV 87.7 MCH 28.4 MCHC 32.4 RDW 15.3 H Plt Count 278 MPV 9.2 Neut # (Auto) 8.0 H Lymph # (Auto) 0.4 L [place] # (Auto) 0.1 Eos # (Auto) 0.0 Baso # (Auto) 0.0 Absolute Nucleated RBC 0.00 Nucleated RBC % 0.0 Sodium 134 L Potassium 3.5 Chloride 100 L Carbon Dioxide 23 Anion Gap 11.0 BUN 28 H Creatinine 1.4 H Estimated GFR (MDRD) 36 L Glucose 131 H Calcium 9.5 Total Bilirubin 2.4 H AST 246 H ALT 100 H Alkaline Phosphatase 175 H Troponin I High Sens 9.7 Total Protein 7.2 Albumin 4.4 Globulin 2.8 Albumin/Globulin Ratio 1.6 Lipase 45 PD MEDICAL DECISION MAKING - ED course Complexity details: reviewed results, re-evaluated patient, d/w patient, d/w family ED course: Patient is 81-year-old female presenting to the emergency department after an episode of acute epigastric abdominal and chest pain. Afebrile, hemodynamically stable on arrival. Abdominal exam benign. EKG nonacute. Patient's labs however did demonstrate a mild leukocytosis as well as an elevation in LFTs, alkaline phosphatase and T bili concerning for biliary obstruction. Ultrasonography subsequently demonstrated an enlarged gallbladder with wall thickening without pericholecystic fluid, and choledocholithiasis with an obstructed common bile duct. Patient was given Rocephin and Flagyl in the emergency department. At this time there are no beds available regionally and she is boarding here in the emergency department until a bed with appropriate services becomes available. I will be signing out to the oncoming physician, please see their documentation for further detail. Departure - Departure Clinical Impression: Choledocholithiasis
[2022-02-15] MEDS ORDERED: cefTRIAXone 1 GM VIAL IVP STA (16:35)
--- NOTE | 2022-02-15 17:08 | Ultrasound Report ---
PROCEDURE: Abdomen Limited INDICATIONS: Evaluation for cholecystitis TECHNIQUE: Real-time focused scanning was performed of the abdomen, with image documentation. COMPARISON: None FINDINGS: Liver: Normal is size and echotexture. No evidence of focal mass lesion. No intra hepatic biliary ductal dilatation. Small hepatic cysts measure up to 13 mm. Focal mass lesion. Gallbladder: Several shadowing calculi within the lumen of the gallbladder. There is gallbladder wal l thickening 0.5 mm. No pericholecystic fluid or Marcelino's sign. Common Bile Duct: 10.2 mm. 6 mm calculus noted in the CBD Pancreas: Unremarkable as visualized. Right Kidney: Appropriate in size and echotexture. No evidence of hydronephrosis. No shadowing calc ranjith. No solid mass lesion. 3.4 cm complex right renal cyst. 4.2 cm simple renal cyst. IMPRESSION: Cholelithiasis and gallbladder wall thickening without pericholecystic fluid. Consider HIDA scan to e valuate for probable acute cholecystitis. Choledocholithiasis and dilated CBD, 10.2 mm Hepatic and renal cysts. Reviewed by: Jonathon Kiser MD on 02/15/2022 4:07 PM [facility] Approved by: Jonathon Kiser MD on 02/15/2022 4:07 PM ARIC Station ID: [id number]
[2022-02-15] MEDS: metroNIDAZOLE 500 MG/100 ML 500 MG/100 ML BAG IV SCH (17:50)
[2022-02-15] MEDS ORDERED: ACETAMINOPHEN 500 MG TABLET PO STA (19:41)
[2022-02-15] MEDS ORDERED: hydrOXYzine PAMOATE 25 MG CAPSULE PO PRN (20:06)
[2022-02-15] MEDS ORDERED: PROMETHAZINE 25 MG TABLET PO PRN (20:07)
[2022-02-15] MEDS ORDERED: cefTRIAXone 2 GM VIAL ONE (20:55)
[2022-02-15] MEDS: LOSARTAN 50 MG TABLET PO SCH (20:58)
[2022-02-15] MEDS: busPIRone 5 MG TABLET PO SCH (20:58)
[2022-02-15] MEDS: amLODIPine 5 MG TABLET PO SCH (20:58)
[2022-02-15] MEDS: PROPRANOLOL 10 MG TABLET PO SCH (20:59)
[2022-02-15] MEDS: cefTRIAXone 2 GM in SODIUM CHLORIDE 0.9% MINIBAG 100 ML IV SCH (21:00)
[2022-02-15] MEDS ORDERED: LATANOPROST 0.005% OPHTH DROPS EACHEYE SCH (21:00)
[2022-02-15] MEDS ORDERED: hydrALAZINE 25 MG TABLET PO SCH (21:00)
[2022-02-15] MEDS: hydrALAZINE 25 MG TABLET PO SCH (21:56)
--- NOTE | 2022-02-15 21:59 | ED Physician Documentation ---
ED Addendum - Addendum Addendum: 02/15/22 21:58 Patient seen and examined at bedside at approximately 7 PM. Briefly 81-year-old woman with choledocholithiasis and 10 mm bile duct with normal white count but elevated bilirubin and liver enzymes. We are hopeful for transfer for a bed at a hospital with capability of ERCP which we do not have here. Patient declines pain medication now with the exception of she wanted some Tylenol for a headache which is not uncommon for her. She is boarding given hospital capacity issues and I have scheduled her routine meds and antibiotics and have also started maintenance fluids. Discussed with patient and that transfer is unlikely tonight as there are no open hospital beds in the area. We have ordered repeat labs and MRCP for tomorrow, optimistically it is possible that she will pass the stone and be able to be discharged for subsequent interval cholecystectomy.
[2022-02-15] MEDS: D5.45NS W/20 MEQ KCL 1,000 ML IV SCH (22:07)
[2022-02-16] MEDS: metroNIDAZOLE 500 MG/100 ML 500 MG/100 ML BAG IV SCH ×2 (01:05→10:17)
[2022-02-16 06:22] LABS: BASOPHILS # (AUTO) 0.1 10^3/uL (0.0-0.1); BASOPHILS % (AUTO) 0.6 %; EOSINOPHILS % (AUTO) 0.1 %; HCT - HEMATOCRIT 31.4 % (37.0-47.0); HGB - HEMOGLOBIN 10.4 g/dL (12.0-16.0); LYMPHOCYTES # (AUTO) 1.3 10^3/uL (1.5-3.5); LYMPHOCYTES % (AUTO) 10.6 %; MEAN CORPUSCULAR HEMOGLOBIN 28.3 pg (27.0-31.0); MEAN CORPUSCULAR HGB CONC 33.1 g/dL (32.0-36.0); MEAN CORPUSCULAR VOLUME 85.6 fL (81.0-99.0); MEAN PLATELET VOLUME 9.2 fL (7.9-10.8); MONOCYTES % (AUTO) 8.4 %; NEUTROPHILS # (AUTO) 9.8 10^3/uL (1.5-6.6); NEUTROPHILS % (AUTO) 79.7 %; PLT - PLATELET COUNT 227 10^3/uL (130-450); RED BLOOD COUNT 3.67 10^6/uL (4.20-5.40); RED CELL DISTRIBUTION WIDTH 15.5 % (12.0-15.0); WHITE BLOOD COUNT 12.2 x10^3/uL (4.8-10.8)
[2022-02-16] MEDS: hydrALAZINE 25 MG TABLET PO SCH (06:22)
[2022-02-16 06:40] LABS: ALBUMIN 3.5 g/dL (3.2-5.5); ALBUMIN/GLOBULIN RATIO 1.3 (1.0-2.2); BILIRUBIN,TOTAL 3.5 mg/dL (0.2-1.0); CALCIUM 8.7 mg/dL (8.5-10.3); CREATININE 1.5 mg/dL (0.4-1.0); POTASSIUM 3.7 mmol/L (3.5-5.0); TOTAL PROTEIN 6.2 g/dL (6.7-8.2)
[2022-02-16] MEDS: D5.45NS W/20 MEQ KCL 1,000 ML IV SCH (07:06)
[2022-02-16] MEDS: LORazepam 0.5 MG TABLET PO SCH ×2 (08:16→10:17)
[2022-02-16] MEDS: hydrOXYzine PAMOATE 25 MG CAPSULE PO SCH ×2 (08:30→09:15)
[2022-02-16] MEDS ORDERED: cefTRIAXone 2 GM VIAL ONE (08:42)
[2022-02-16] MEDS: cefTRIAXone 2 GM in SODIUM CHLORIDE 0.9% MINIBAG 100 ML IV SCH (09:00)
[2022-02-16] MEDS ORDERED: ESCITALOPRAM 10 MG TABLET PO SCH ×2 (09:00)
[2022-02-16] MEDS: LOSARTAN 50 MG TABLET PO SCH (09:03)
[2022-02-16] MEDS: amLODIPine 5 MG TABLET PO SCH (09:03)
[2022-02-16] MEDS: PROPRANOLOL 10 MG TABLET PO SCH (09:03)
[2022-02-16] MEDS: busPIRone 5 MG TABLET PO SCH (09:15)
[2022-02-16] MEDS ORDERED: GADOBUTROL 7.5 MMOL/7.5 ML VIAL ONE (11:20)
--- NOTE | 2022-02-16 12:55 | ED Physician Documentation ---
ED Addendum - Addendum Addendum: 02/16/22 12:54 Liver enzymes trended up overnight and her white count has elevated a bit. MRCP is pending, but given the known diagnosis she was presented to Dr. Kate at [facility] who accepts in transfer. Disposition: Transferred to [facility] for tertiary care/potential ERCP Condition: Stable Diagnosis: 1. Choledocholithiasis with obstruction.
--- NOTE | 2022-02-16 13:12 | MRI Report ---
PROCEDURE: MRCP W/WO INDICATIONS: Choledocholithiasis CONTRAST: IV CONTRAST: Gadavist ml: 6.8 TECHNIQUE: Coronal ultra fast SE through the abdomen, axial 2-D spoiled GE in- and [id number], and breath-hold T2 FSE with fat saturation through the biliary system and pancreas. Oblique coronal and axial thin- slice ultra fast SE, radial thick-slab ultra fast SE centered on the extrahepatic bile ducts. COMPARISON: Right upper quadrant ultrasound 02/15/2022. FINDINGS: Image quality: Suboptimal due to motion artifact. Pancreas and biliary system: Extrahepatic bile duct measures up to 8 mm, at the upper limit of normal for patient age. Intrahepatic biliary ducts are non dilated. No definite choledocholithiasis identi fied. Pancreas is normal in morphology, without adjacent soft tissue edema. Pancreatic duct is normal in c aliber. Gallbladder is distended with wall thickening and/or pericholecystic fluid present. No large gallston es visualized. Tiny gallstones visualized on prior ultrasound could be obscured by motion artifact. Other solid organs: Liver and spleen are normal in size. A few small hepatic cysts are present. No a drenal nodules. Both kidneys are normal in size, without hydronephrosis. Renal cortical and/or devon l sinus cysts are present without highly suspicious features identified. Nodes and vessels: No retroperitoneal or mesenteric adenopathy by size criteria. Aorta and inferior vena cava are normal in size. Bowel and peritoneum: Unenhanced bowel loops are normal in caliber. Colonic diverticulosis. No subs tantial free fluid. Lung bases: Small left pleural effusion. Bones and soft tissues: Bone marrow is of normal overall signal. IMPRESSION: 1. The extrahepatic bile duct is at the upper limit of normal in size for patient age. No intrahepati c ductal dilation. No definite choledocholithiasis identified. Previously demonstrated choledocholith may have passed in the interval or could be nonvisualized due to motion artifact on this exam. 2. The gallbladder is distended with wall thickening and/or pericholecystic fluid present. Clinical c orrelation for acute cholecystitis may be helpful. Reviewed by: Shiraz العراقي MD on 02/16/2022 1:11 PM PDT Approved by: Shiraz العراقي MD on 02/16/2022 1:11 PM PDT Station ID: [id number]
[2022-02-16 13:18] VITALS: BP 151/57
[2022-02-16] MEDS ORDERED: GADOBUTROL 7.5 MMOL/7.5 ML VIAL IVP ONE (14:50)
== END 2022-02-16 14:07 | disposition short-term general hospital (02) ==
LOC: ED 14:23
DX: K80.51 Calculus of bile duct without cholangitis or cholecystitis with obstruction (principal); I12.9 Hypertensive chronic kidney disease with stage 1 through stage 4 chronic kidney disease, or unspecified chronic kidney disease; N18.30 Chronic kidney disease, stage 3 unspecified
CPT/HCPCS: 36415; 71045; 74183; 76705; 80053; 83690; 84484; 85025; 87635; 93005; 96361; 96374; 96375; 99283; 99285; A9270; A9585

== ENCOUNTER 2022-02-16 13:49 | Outpatient (CLI) | payer MEDICARE, OTHER | END 2022-02-16 13:50 | disposition home or self-care (01) | LOC: EMS 13:49 | PROVIDERS: ATTEND Emergency Medicine | DX: K80.50 Calculus of bile duct without cholangitis or cholecystitis without obstruction (principal) | CPT/HCPCS: A0425; A0429 ==

== ENCOUNTER 2022-05-25 13:38 | Outpatient (CLI) | payer MEDICARE, OTHER ==
[2022-05-25 20:06] LABS: ALBUMIN 4.3 g/dL (3.2-5.5); CALCIUM 9.3 mg/dL (8.5-10.3); CREATININE 2.4 mg/dL (0.4-1.0); PHOSPHORUS 4.4 mg/dL (2.5-4.6); POTASSIUM 4.2 mmol/L (3.5-5.0)
[2022-05-25 20:14] LABS: CREATININE,URINE 67.7 mg/dL
[2022-05-25 20:35] LABS: TOTAL PROTEIN,URINE TIMED < 6 mg/dL
== END 2022-05-25 13:39 | disposition home or self-care (01) ==
LOC: LAB.S 13:38
PROVIDERS: ATTEND Internal Medicine Nephrology
DX: N18.32 Chronic kidney disease, stage 3b (principal)
CPT/HCPCS: 36415; 80069; 82570; 84156

== ENCOUNTER 2022-06-27 13:10 | Outpatient (CLI) | payer MEDICARE, OTHER ==
[2022-06-27 20:31] LABS: ALBUMIN 4.1 g/dL (3.2-5.5); CALCIUM 9.4 mg/dL (8.5-10.3); CREATININE 1.3 mg/dL (0.4-1.0); PHOSPHORUS 3.9 mg/dL (2.5-4.6); POTASSIUM 4.7 mmol/L (3.5-5.0)
== END 2022-06-27 13:11 | disposition home or self-care (01) ==
LOC: LAB.S 13:10
PROVIDERS: ATTEND Internal Medicine Nephrology
DX: E87.1 Hypo-osmolality and hyponatremia (principal)
CPT/HCPCS: 36415; 80069

== ENCOUNTER 2022-06-30 12:59 | Outpatient (CLI) | payer MEDICARE, OTHER ==
[2022-06-30 15:26] LABS: CREATININE,URINE 90.1 mg/dL; PROTEIN/CREATININE RATIO,URINE 0.1 (<=0.2)
== END 2022-06-30 13:00 | disposition home or self-care (01) ==
LOC: LAB.S 12:59
PROVIDERS: ATTEND Internal Medicine Nephrology
DX: N18.31 Chronic kidney disease, stage 3a (principal)
CPT/HCPCS: 82570; 84156

== ENCOUNTER 2022-09-25 08:31 | Outpatient (CLI) | payer MEDICARE, OTHER ==
[2022-09-25 15:12] LABS: CREATININE 1.2 mg/dL (0.4-1.0); PHOSPHORUS 3.9 mg/dL (2.5-4.6); POTASSIUM 4.3 mmol/L (3.5-5.0)
[2022-09-25 15:15] LABS: CREATININE,URINE 41.9 mg/dL; PROTEIN/CREATININE RATIO,URINE 0.3 (<=0.2)
== END 2022-09-25 08:32 | disposition home or self-care (01) ==
LOC: LAB.S 08:31
PROVIDERS: ATTEND Internal Medicine Nephrology
DX: N18.31 Chronic kidney disease, stage 3a (principal)
CPT/HCPCS: 36415; 80069; 82570; 84156

== ENCOUNTER 2023-01-17 08:00 | Outpatient (CLI) | payer MEDICARE, OTHER | END 2023-01-17 23:59 | disposition home or self-care (01) | LOC: LAB.S 08:00 | PROVIDERS: ATTEND Physician Assistant Medical | DX: N39.0 Urinary tract infection, site not specified (principal) | CPT/HCPCS: 87086; 87181 ==

== ENCOUNTER 2023-01-24 12:46 | Outpatient (CLI) | payer MEDICARE, OTHER ==
[2023-01-24 15:37] LABS: ALBUMIN 4.4 g/dL (3.2-5.5); CALCIUM 9.9 mg/dL (8.5-10.3); CREATININE 1.9 mg/dL (0.6-1.3); PHOSPHORUS 3.7 mg/dL (2.5-5.0); POTASSIUM 4.4 mmol/L (3.5-4.5)
[2023-01-24 15:55] LABS: CREATININE,URINE 178.5 mg/dL; PROTEIN/CREATININE RATIO,URINE 0.4 (<=0.2)
== END 2023-01-24 12:47 | disposition home or self-care (01) ==
LOC: LAB.S 12:46
PROVIDERS: ATTEND Internal Medicine Nephrology
DX: N18.32 Chronic kidney disease, stage 3b (principal)
CPT/HCPCS: 36415; 80069; 82570; 84156

== ENCOUNTER 2023-04-09 11:06 | Outpatient (CLI) | payer MEDICARE, OTHER ==
[2023-04-09 16:23] LABS: ALBUMIN 4.3 g/dL (3.2-5.5); CALCIUM 9.8 mg/dL (8.5-10.3); CREATININE 1.3 mg/dL (0.6-1.3); PHOSPHORUS 3.5 mg/dL (2.5-5.0); POTASSIUM 4.5 mmol/L (3.5-4.5)
[2023-04-09 16:24] LABS: CREATININE,URINE 44.4 mg/dL; PROTEIN/CREATININE RATIO,URINE 0.2 (<=0.2)
== END 2023-04-09 11:07 | disposition home or self-care (01) ==
LOC: LAB.S 11:06
PROVIDERS: ATTEND Internal Medicine Nephrology
DX: N17.9 Acute kidney failure, unspecified (principal)
CPT/HCPCS: 36415; 80069; 82570; 84156

== ENCOUNTER 2023-05-21 11:33 | Outpatient (CLI) | payer MEDICARE, OTHER ==
--- NOTE | 2023-05-21 14:51 | XRAY Report ---
PROCEDURE: Chest 2V INDICATIONS: OTHER PNEUMONIA TECHNIQUE: 2 views of the chest were acquired. COMPARISON: None. FINDINGS: Surgical changes and devices: Surgical clips partially seen near the GE junction. Lungs and pleura: Mild infrahilar interstitial or bronchial wall thickening in the right medial lowe r lung and at the left lung base. There is slight blunting of left costophrenic sulcus indicating tra ce effusion. No pneumothorax. Mediastinum: Mediastinal contours appear normal. Heart size is normal. Bones and chest wall: No suspicious bony lesions. Overlying soft tissues appear unremarkable. IMPRESSION: 1. Interstitial or bronchial wall thickening in the infrahilar regions bilaterally suggests bronchiti s or viral pneumonitis. 2. Trace left pleural effusion. Reviewed by: Sayda Birch MD on 05/21/2023 2:50 PM PST Approved by: Sayda Birch MD on 05/21/2023 2:50 PM PST Station ID: [id number]
== END 2023-05-21 11:34 | disposition home or self-care (01) ==
LOC: DI.S 11:33
PROVIDERS: ATTEND Emergency Medicine
DX: J18.8 Other pneumonia, unspecified organism (principal); J90 Pleural effusion, not elsewhere classified

== ENCOUNTER 2023-07-24 11:12 | Outpatient (CLI) | payer MEDICARE, OTHER ==
[2023-07-24 16:49] LABS: CREATININE,URINE 101.3 mg/dL; PROTEIN/CREATININE RATIO,URINE 0.2 (<=0.2)
[2023-07-24 16:53] LABS: ALBUMIN 4.2 g/dL (3.2-5.5); CALCIUM 9.8 mg/dL (8.5-10.3); CREATININE 1.2 mg/dL (0.6-1.3); PHOSPHORUS 3.6 mg/dL (2.5-5.0); POTASSIUM 4.3 mmol/L (3.5-4.5)
== END 2023-07-24 11:13 | disposition home or self-care (01) ==
LOC: LAB.S 11:12
PROVIDERS: ATTEND Internal Medicine Nephrology
DX: N17.9 Acute kidney failure, unspecified (principal)
CPT/HCPCS: 36415; 80069; 82570; 84156

== ENCOUNTER 2023-07-27 13:47 | Outpatient (CLI) | payer MEDICARE, OTHER | END 2023-07-27 13:48 | disposition home or self-care (01) | LOC: DI 13:47 | PROVIDERS: ATTEND Internal Medicine | DX: I08.0 Rheumatic disorders of both mitral and aortic valves (principal); I21.4 Non-ST elevation (NSTEMI) myocardial infarction | CPT/HCPCS: 93307 ==

== ENCOUNTER 2023-08-06 10:14 | Day surgery (SDC) | payer MEDICARE, OTHER ==
[2023-08-06] MEDS: LACTATED RINGERS 1,000 ML IV ONE ×2 (10:48→11:39)
--- NOTE | 2023-08-06 10:57 | ANESTHESIA ---
Pre-Anesthesia VS, & Labs - Diagnosis sCREENING - Procedure COLONOSCOPY Vital Signs: Temp Pulse Resp BP Pulse Ox O2 Flow Rate 36.1 C L 63 19 154/72 H 98 08/06/23 10:28 08/06/23 10:28 08/06/23 10:28 08/06/23 10:28 08/06/23 10:28 Height: 5 ft Weight (kg): 69 kg Body Mass Index: 29.7 BMI Classification: Overweight - NPO Last Fluid Intake: 06 - Is Patient ?: No Home Medications and Allergies Home Medications: Ambulatory Orders cloNIDine 0.1 MG PATCH [[id number]-[id number]-6] 1 patch TOP OAW 08/02/23 Aspirin [Aspirin EC] 81 mg PO DAILY 04/02/20 Escitalopram [Lexapro] 10 mg PO DAILY 02/15/22 Hydralazine HCl 50 mg PO BID 02/15/22 Latanoprost/Pf [Latanoprost 0.005% Eye Drop] 1 drops EACHEYE DAILY 02/15/22 Propranolol HCl 20 mg ORAL BID 02/15/22 amLODIPine [Norvasc] 5 mg ORAL BID 02/15/22 busPIRone [Buspar] 7.5 mg PO BID 02/15/22 cloNIDine 0.1 MG PATCH [[id number]-Lng-4] 1 patch TOP OAW 08/02/23 Allergies/Adverse Reactions: Allergies Allergy/AdvReac Type Severity Reaction Status Date / Time clindamycin Allergy Hives Verified 02/15/22 14:35 fentanyl AdvReac Emesis Verified 02/15/22 14:35 hydrocodone bitartrate * AdvReac Nausea Verified 02/15/22 14:35 [From Vicodin] metoclopramide [From Reglan] AdvReac Hallucinati Verified 02/15/22 14:35 ons Anes History & Medical History - Anesthetic History Anesthesia Complications: reports: No previous complications Family history of Anesthesia Complications: Denies - Medical History Cardiovascular: reports: Hypertension, MT, Arrhythmia (hx PSVT, never recently, ECHO 07/26, EF 60-65%, NO MAJOR VAlve disorders, denies cp/sob), Valve disorder Pulmonary: reports: Pneumonia Gastrointestinal: reports: GERD, Hiatal hernia Urinary: reports: None Musculoskeletal: reports: None Endocrine/Autoimmune: reports: None Blood Disorders: reports: None Skin: reports: None Smoking Status: Never smoker Psychosocial: reports: No issues indicated - Surgical History General: reports: Cholecystectomy, Colonoscopy Eyes Ears Nose Throat (EENT): reports: Cataracts Gynecologic: reports: Hysterectomy Results - Echo Results Echo Results: Report reviewed Exam General: Alert Dental: WNL Mouth Openin Fingerbreadth Neck Mobility: Normal Mallampati classification: II Thyromental Distance: 4-6 cm Plan Anesthesia Type: Total IV Consent for Procedure(s) Verified and Reviewed: Yes Code Status: Attempt Resuscitation ASA classification: 3-Severe systemic disease Is this case an emergency?: No
[2023-08-06] MEDS ORDERED: PROPOFOL 500 MG/50 ML 500 MG/50 ML VIAL ONE (11:08)
[2023-08-06] MEDS ORDERED: GLYCOPYRROLATE 1 MG/5 ML VIAL ONE (11:17)
[2023-08-06 12:04] VITALS: O2SAT 98
[2023-08-06 12:14] VITALS: BP 128/55
--- NOTE | 2023-08-06 13:16 | ANESTHESIA POST OP EVALUATION ---
Anesthesia Post Eval - Post Anesthesia Eval Vitals: Last Vital Signs Temp 36.0 C L 08/06/23 12:08 Pulse 59 L 08/06/23 12:08 Resp 16 08/06/23 12:08 BP 128/55 L 08/06/23 12:08 Pulse Ox 98 08/06/23 12:08 O2 Flow Rate CV Function Including HR & BP: Stable Pain Control: Satisfactory Nausea & Vomiting: Negative Mental Status: Baseline Respiratory Status: Airway Patent Hydration Status: Satisfactory Anesthesia Complications: None
== END 2023-08-06 10:15 | disposition home or self-care (01) ==
LOC: SDS 10:14
PROVIDERS: ATTEND Surgery
DX: Z12.11 Encounter for screening for malignant neoplasm of colon (principal); K57.30 Diverticulosis of large intestine without perforation or abscess without bleeding; K64.1 Second degree hemorrhoids; Q43.8 Other specified congenital malformations of intestine; I12.9 Hypertensive chronic kidney disease with stage 1 through stage 4 chronic kidney disease, or unspecified chronic kidney disease; N18.31 Chronic kidney disease, stage 3a; Z80.0 Family history of malignant neoplasm of digestive organs
CPT/HCPCS: G0105; J7120

== ENCOUNTER 2024-02-06 09:07 | Outpatient (CLI) | payer MEDICARE, OTHER ==
[2024-02-06 15:24] LABS: ALBUMIN 4.2 g/dL (3.2-5.5); CALCIUM 9.5 mg/dL (8.5-10.3); CREATININE 1.4 mg/dL (0.6-1.3); PHOSPHORUS 3.6 mg/dL (2.5-5.0); POTASSIUM 4.2 mmol/L (3.5-4.5)
[2024-02-06 15:36] LABS: CREATININE,URINE 67.5 mg/dL; PROTEIN/CREATININE RATIO,URINE 0.4 (<=0.2)
== END 2024-02-06 09:08 | disposition home or self-care (01) ==
LOC: LAB.S 09:07
PROVIDERS: ATTEND Internal Medicine Nephrology
DX: N17.9 Acute kidney failure, unspecified (principal)
CPT/HCPCS: 36415; 80069; 82570; 84156